=== PATIENT | male | born 1945 | race Hispanic/Latino ===

== ENCOUNTER 2017-12-21 08:47 | Day surgery (SDC) | payer MEDICARE, OTHER ==
[2017-12-17 07:34] VITALS: BMI 27.5
[2017-12-21] MEDS ORDERED: Propofol 10 mg/ml Inj (20 ML) ONE (10:46)
[2017-12-21] MEDS ORDERED: Midazolam 2 MG/2 ML VIAL ONE (10:46)
[2017-12-21] MEDS ORDERED: Bupivacaine HCl 0.25% PF (10 ml) Inj ONE (10:55)
[2017-12-21] MEDS ORDERED: ceFAZolin 1 gm in NS 2 GM/200 ML BAG IVPB ONE (10:55)
[2017-12-21] MEDS ORDERED: Lactated Ringer's 1,000 ML IV SCH ×2 (11:30→11:45)
[2017-12-21] MEDS ORDERED: Oxycodone/Acetaminophen 5/325 mg Tab PO PRN (11:31)
[2017-12-21 12:39] VITALS: TEMP 97.1
[2017-12-21 13:39] VITALS: BP 101/58; PULSE 64; RESP 16; O2SAT 98
--- NOTE | 2017-12-22 03:46 | OP ---
PROCEDURE DATE: 12/21/2017 PREOPERATIVE DIAGNOSIS: Right carpal tunnel syndrome. POSTOPERATIVE DIAGNOSIS: Right carpal tunnel syndrome. PROCEDURE: Right endoscopic carpal tunnel release surgery and neuroplasty using Arthrex kit, [id number]. SURGEON: Alonso Dalton MD LINTER OPERATOR: YAZMIN Nguyễn. ANESTHESIA: General with local. ESTIMATED BLOOD LOSS: Zero. SPECIMENS: None. COMPLICATIONS: None. DISPOSITION: Stable to recovery room. INDICATION: This is a 72-year-old male with chronic history of right carpal tunnel syndrome who has failed conservative therapy. The patient was indicated for the above procedure. Risks and benefits were explained. Risks included, but not limited to bleeding, infection, damage to nerve, vascular injury, instability, chronic pain and potential need for additional surgery. The patient understood the above risks and wished to proceed. Informed consent was obtained. DESCRIPTION OF PROCEDURE: The patient was brought to the operating room and placed supine on the operating room table after adequate anesthesia was given and prophylactic antibiotics. A well-padded non-sterile tourniquet was placed in the patient's right upper extremity. The entire extremity was then prepped and draped in a standard surgical fashion. Time-out was performed. A transverse 2 cm incision was outlined at the distal wrist flexion crease. The arm was elevated and exsanguinated and tourniquet was inflated to 250 mmHg. Incision was made through the skin only. All superficial veins were cauterized. Dissection was carried down to identifying the palmaris longus tendon. tendon was retracted ulnarly. The deep fascia was then incised in midline and the carpal canal was entered. The median nerve was identified and protected throughout the whole procedure. Dilators were then inserted into the carpal canal. Then, the endoscopic Arthrex scalpel was inserted into the carpal canal and the carpal ligaments were identified and raised. The carpal ligament was incised in its entirety from distal to proximal direction, releasing it, and decompressing the contents of the carpal canal. There was no evidence of abnormal masses compression. The endoscopic tip was then removed and proximal fascia of the median nerve was actually incised with a tenotomy scissors to provide decompression of the nerve. The wound was then copiously irrigated. Tourniquet was deflated. Hemostasis was obtained. Skin was closed with 4-0 Monocryl subcuticular sutures. Steri-Strips and sterile dressing was applied followed by Black. The patient tolerated the procedure well and returned to recovery room in excellent condition. Alonso Dalton MD
== END 2017-12-21 13:35 | disposition home or self-care (01) ==
LOC: C.SDS 08:47
PROVIDERS: ATTEND Orthopaedic Surgery
DX: G56.01 Carpal tunnel syndrome, right upper limb (principal)
CPT/HCPCS: 29848; J0690; J2250; J2704; J3010